=== PATIENT | male | born 2000 | race Two or more races ===

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

== ENCOUNTER 2023-11-19 20:43 | Emergency (ER) | payer BC, OTHER ==
[~2023-11-19] VITALS: Ht 182.9 cm; Wt 68.0 kg
[2023-11-19 21:37] VITALS: BP 114/68; TEMP 98; O2SAT 99
[2023-11-19 22:32] LABS: BASOPHILS # (AUTO) 0.1 K/uL (0.0-0.2); BASOPHILS % (AUTO) 1.1 % (0.0-2.0); EOSINOPHILS # (AUTO) 0.1 K/uL (0.0-0.7); HEMATOCRIT 39 % (39-51); HEMOGLOBIN 13.1 g/dL (13.5-17.5); LYMPHOCYTES # (AUTO) 2.6 K/uL (0.8-4.8); LYMPHOCYTES % (AUTO) 41.2 % (20.0-44.0); MEAN CORPUSCULAR HEMOGLOBIN 31 PG (26.0-33.0); MEAN CORPUSCULAR HGB CONC 34 g/dl (31.0-36.0); MEAN CORPUSCULAR VOLUME 93 fL (80-96); MONOCYTES # (AUTO) 0.5 K/uL (0.1-1.30); NEUTROPHILS % (AUTO) 47.7 % (43.0-81.0); PLATELET COUNT (AUTO) 222 K/uL (150-450); RED BLOOD CELL COUNT(AUTO) 4.17 MIL/uL (4.5-6.0); RED CELL DISTRIBUTION WIDTH 13.5 % (11.5-15.0); WHITE BLOOD COUNT (AUTO) 6.2 K/uL (4.3-11.0)
[2023-11-19] MEDS ORDERED: FAMOTIDINE/PF INJ 20 MG/2 ML VIAL IV ONE (22:40)
[2023-11-19] MEDS ORDERED: methylPREDNISolone SOD SUCC 125 MG/2ML VIAL ONE (22:40)
[2023-11-19] MEDS ORDERED: diphenhydrAMINE HCL 50 MG/ML VIAL ONE (22:40)
[2023-11-19] MEDS: FAMOTIDINE/PF INJ 20 MG/2 ML VIAL IV ONE (23:05)
[2023-11-19] MEDS: methylPREDNISolone SOD SUCC 125 MG/2ML VIAL IV ONE (23:05)
[2023-11-19] MEDS: diphenhydrAMINE HCL 50 MG/ML VIAL IV ONE (23:05)
[2023-11-19 23:15] LABS: CALCIUM, SERUM 8.4 mg/dL (8.5-10.1)
[2023-11-19 23:22] LABS: ALBUMIN 3.7 g/dL (3.4-5.0); BILIRUBIN,TOTAL 0.7 mg/dL (0.2-1.0); TOTAL PROTEIN, SERUM 7.3 g/dL (6.4-8.2)
[2023-11-19] MEDS ORDERED: DIPH25TA62 PO (23:40)
[2023-11-19] MEDS ORDERED: CLIN150C16 PO (23:40)
[2023-11-19] MEDS ORDERED: PRED20TA PO (23:40)
== END 2023-11-19 23:48 | disposition home or self-care (01) ==
LOC: ER 20:50
DX: R21 Rash and other nonspecific skin eruption (principal); L53.9 Erythematous condition, unspecified; F17.200 Nicotine dependence, unspecified, uncomplicated
CPT/HCPCS: 99284; 96374; 96375; 85025; 36415; 80053; J1200; J3490; J2919